=== PATIENT | male | born 1985 | race Two or more races ===

== ENCOUNTER 2021-03-13 21:57 | Emergency (ER) | payer MEDICAID, OTHER ==
[~2021-03-13] VITALS: Ht 170.2 cm; Wt 95.0 kg
[2021-03-14] MEDS ORDERED: IBUPROFEN 800MG TABLET PO ONE (01:30)
[2021-03-14] MEDS ORDERED: ONDANSETRON 4MG ODT PO ONE (02:00)
[2021-03-14] MEDS ORDERED: HYDROCODONE/ACETAMINOPHEN 5/325MG TABLET PO ONE (03:00)
[2021-03-14] MEDS ORDERED: IBUP-2030 MT (04:13)
[2021-03-14] MEDS ORDERED: CYCL10TA7 MT (04:13)
[2021-03-14 05:00] VITALS: BP 121/77
== END 2021-03-14 05:30 | disposition home or self-care (01) ==
LOC: ER 21:57
DX: S02.31XA Fracture of orbital floor, right side, initial encounter for closed fracture (principal); S00.03XA Contusion of scalp, initial encounter; S20.20XA Contusion of thorax, unspecified, initial encounter; S39.012A Strain of muscle, fascia and tendon of lower back, initial encounter; V43.52XA Car driver injured in collision with other type car in traffic accident, initial encounter; Y93.89 Activity, other specified; Y92.488 Other paved roadways as the place of occurrence of the external cause
CPT/HCPCS: 70450; 70486; 71045; 72100; 72125; 99285; Q0162

== ENCOUNTER 2021-03-17 18:32 | Emergency (ER) | payer SELFPAY ==
[~2021-03-17] VITALS: Ht 170.2 cm; Wt 100.0 kg
[~2021-03-17 18:32] MED LIST: CYCL10TA7 MT; IBUP-2030 MT
[2021-03-17] MEDS ORDERED: SODIUM CHLORIDE 0.9% 1,000 ML IV ONE (22:00)
[2021-03-17 22:41] LABS: BASOPHILS % 0.5 % (0.0-2.0); EOSINOPHILS % 2.6 % (0.0-5.0); HEMATOCRIT. 44.7 % (42.0-52.0); HEMOGLOBIN. 15.3 g/dL (14.0-18.0); LYMPHOCYTES % 18.9 % (20.0-50.0); MEAN CORPUSCULAR HEMOGLOBIN 29.9 pg (28.0-32.0); MEAN CORPUSCULAR VOLUME 87.1 fL (80.0-94.0); MEAN PLATELET VOLUME 9.1 fl (7.4-10.4); MONOCYTES % 7.5 % (2.0-8.0); NEUTROPHILS % 70.5 % (40.0-76.0); PLATELET 240 x1000/uL (130-400); RED BLOOD CELL COUNT 5.13 mill/uL (4.7-6.1); RED CELL DISTRIBUTION WIDTH 13.6 % (11.6-14.6)
[2021-03-17 22:42] LABS: CHLORIDE 102 mEq/L (98-107)
[2021-03-18 00:08] VITALS: BP 135/75
== END 2021-03-18 00:10 | disposition home or self-care (01) ==
LOC: ER 18:32
DX: R42 Dizziness and giddiness (principal); K92.1 Melena
CPT/HCPCS: 36415; 80053; 85025; 93005; 96360; 99284; J7030